=== PATIENT | male | born 1985 | race Caucasian/White ===

== ENCOUNTER 2025-07-11 14:33 | Outpatient (CLI) | payer OTHER, SELFPAY | END 2025-07-11 14:34 | disposition home or self-care (01) | LOC: NFLDREF 07-13 09:17 | PROVIDERS: PCP Family Medicine; Referring Provider Family Medicine; Visit Provider Physician Assistant Surgical | DX: N30.01 Acute cystitis with hematuria (principal) | CPT/HCPCS: 87086 ==